=== PATIENT | female | born 1995 | race Caucasian/White ===

== ENCOUNTER → 2019-10-22 10:08 | Outpatient (CLI) | payer BC, SELFPAY ==
--- NOTE | ~2019-10-22 | US_ITS ---
EXAMINATION: US pelvic complete DATE: 10/22/2019 11:26 INDICATION: Heavy bleeding and pelvic cramping TECHNIQUE: Multiple transabdominal sonographic images of the pelvis were obtained. COMPARISON: None. FINDINGS: The uterus measures 7.1 x 4.5 x 3.3 cm. The endometrial complex measures 4 mm. The right ov christos measures 1.7 x 1.3 x 1.9 cm. The left ovary measures 2.7 x 2 x 2 cm. There is normal vascular roque w in the ovaries. There is no free fluid in the pelvis. IMPRESSION: 1. No sonographic correlate for the patient's symptoms. Reviewed, dictated and finalized at location A.
== END ==
PROVIDERS: Visit Provider Family Medicine
DX: N92.6 Irregular menstruation, unspecified (principal)
CPT/HCPCS: 76856

== ENCOUNTER 2020-11-04 16:39 | Observation (INO) | payer OTHER, SELFPAY ==
[2020-11-04 17:09] VITALS: BMI 32.1
[2020-11-04 17:15] VITALS: BP 105/62; PULSE 100
--- NOTE | 2020-11-04 17:15 | OBADM ---
This patient, Nancy Kinney, admitted to the OB room OB Post 116 for observation. Patient/family oriented to hospital policies and general routines including ID bracelet, bed and alarms, visiting hours, pain management, procedures, bathroom and other care routines, personal items, smoking policy, room service/diet, and visiting hours. Patient/Family are encouraged to report perceived risks to care and to ask questions if they do not understand what they are told or what they should do.
[2020-11-04 17:18] LABS: Add Urine Microscopic? YES; Amorphous Sediment Urine Few; Appearance Urine Cloudy (Clear); Bacteria Urine Trace /hpf; Bilirubin Urine Negative (Negative); Blood Urine Negative (Negative); Color Urine Yellow (Yellow); Glucose Urine UA Negative (Negative); Ketones Urine Trace mg/dL (Negative); Leukocyte Esterase Ur 1+ LEU/UL (NEGATIVE); Nitrate Urine Negative (Negative); Protein Urine Negative (Negative); RBC Urine 0-2 /hpf (0-2); Specific Grav Ur 1.009 (1.001-1.035); Squamous Epithelial Cell Urine Many /hpf (Few); Urobilinogen Urine Negative mg/dL (<2.0)
[2020-11-04 17:30] VITALS: BP 109/69; PULSE 95
--- NOTE | 2020-11-04 18:01 | PC.NURSE ---
1800- SPoke with Dr. Ly, orders for flexeril, and discharge to home.
[2020-11-04] MEDS: CYCLOBENZAPRINE HCL 10 MG TABLET PO (18:20)
--- NOTE | 2020-11-09 10:35 | P.PNOB_ITS ---
OB - Triage/Final Diagnosis Visit Information Reason for evaluation: threatened labor Comments/Additional reasons for admission: I have assessed the risk for this patient, Nancy Kinney, and determined that she would benefit from observation care. Evaluation Laboratory results: Laboratory Tests 11/04/20 17:04 Urine Color Yellow Urine Appearance Cloudy H Urine pH 8.0 Ur Specific [place] 1.009 Urine Protein Negative Urine Glucose (UA) Negative Urine Ketones Trace Ur Blood (Man) Negative Urine Nitrate Negative Urine Bilirubin Negative Urine Urobilinogen Negative Ur Leukocyte Esterase 1+ H Urine RBC 0-2 Urine WBC 4-6 H Ur Squamous Epith Cells Many H Amorphous Sediment Few H Urine Bacteria Trace Hyaline Casts 3-4 H
== END 2020-11-04 18:23 | disposition home or self-care (01) ==
PROVIDERS: Admitting Provider Obstetrics & Gynecology; Visit Provider Obstetrics & Gynecology
DX: O47.9 False labor, unspecified (principal); Z3A.00 Weeks of gestation of pregnancy not specified
CPT/HCPCS: 81001; 87086; A9270; G0378; G0379

== ENCOUNTER 2020-12-11 13:09 | Outpatient (RCR) | payer OTHER, SELFPAY ==
[2020-12-08 12:22] VITALS: BP 119/79; PULSE 82
--- NOTE | ~2020-12-11 | US_ITS ---
EXAMINATION: US OB follow up DATE: 12/11/2020 14:21 INDICATION: Assess growth and estimated weight at full-term of . TECHNIQUE: Real-time ultrasound of the pelvis was performed. The interpreting radiologist was not pre sent for the study. COMPARISON: None. FINDINGS: There is a single living fetus in vertex presentation. The placenta is posterior. heart rate i s 135 beats per minute (bpm). The amniotic fluid index is 11.0 cm, which is normal (5th%-95%: 7.1-31 .4 cm at 40 weeks estimated gestational age). The following biometric data were obtained: BPD: 10.0 cm -> 40 weeks 6 days Head circumference: 35.8 cm -> 40 weeks 2 days Abdominal circumference: 33.9 cm -> 37 weeks 5 days Femur length: 7.2 cm -> 36 weeks 4 days These measurements are concordant. Head circumference to abdominal circumference ratio: 1.03 (normal range 0.87-1.06). Estimated weight: 3414 g (+/-) 512 g or 7 lbs. 8 oz. (+/-) 1 lbs. 2 oz. IMPRESSION: 1. Single living fetus in vertex presentation with heart rate of 135 bpm. 2. Normal amniotic fluid index of 11.0 cm. 3. Estimated weight is 26th percentile by Hadlock criteria when 12/07/2020 is used as the estim ated date of delivery (NATA). Please correlate with clinical information or earlier ultrasounds for mo st accurate NATA. Reviewed, dictated and finalized at location A. IMPRESSION: 1. Single living fetus in vertex presentation with heart rate of 135 bpm. 2. Normal amniotic fluid index of 11.0 cm. 3. Estimated weight is 26th percentile by Hadlock criteria when 1 is used as the estimated date of delivery (NATA). Please correlate with clinic al information or earlier ultrasounds for most accurate NATA.
--- NOTE | ~2020-12-11 | US_ITS ---
EXAMINATION: US OB BPP wo non-stress DATE: 12/08/2020 13:07 CDT INDICATION: Decreased movement TECHNIQUE: Real-time transabdominal obstetric ultrasound. FINDINGS: No prior studies for comparison. There is a single living fetus in vertex presentation. The placenta is posterior fundal without plac enta previa. cardiac activity and movement is noted with a heart rate of 138 beats per minute. Biophysical profile: breathin of 2 movement: 2 of 2 tone: 2 of 2 Amniotic flud pocket: 2 of 2 Total score: 8 of 8 IMPRESSION: 1. Single living intrauterine in vertex presentation. 2: Total biophysical profile score of 8/8. Reviewed, dictated and finalized at location B.
[2020-12-11 14:20] VITALS: BP 114/82; PULSE 100
== END 2021-01-05 09:35 | disposition home or self-care (01) ==
LOC: ANHOBOP 13:09
PROVIDERS: Visit Provider Obstetrics & Gynecology
DX: O36.8130 Decreased fetal movements, third trimester, not applicable or unspecified (principal); Z3A.40 40 weeks gestation of pregnancy
CPT/HCPCS: 59025; 76816; 76819

== ENCOUNTER 2020-12-16 17:01 | Inpatient (IN) | payer OTHER, SELFPAY ==
[2020-12-16] VITALS (11 sets, daily range): BP systolic 97–138; BP diastolic 54–95; PULSE 78–111; BMI 32.7
--- NOTE | 2020-12-16 18:03 | LDADM ---
This patient, Nancy Kinney, was admitted to Labor/Delivery/Recovery 107 on 12/16/20 at 17:01. Plans for labor, pain management and were discussed with patient. Patient/family oriented to hospital policies and general routines including ID bracelet, bed and alarms, visiting hours, pain management, procedures, bathroom and other care routines, personal items, smoking policy, room service/diet and guest tray routines, infant security routines, and visiting hours. Patient/Family are encouraged to report perceived risks to care and to ask questions if they do not understand what they are told or what they should do. See OBIX for further documentation.
[2020-12-16 18:10] LABS: Basophils Percent Auto 0.1 % (0.2-1.2); Hematocrit 29.5 % (37.0-47.0); Hemoglobin 9.3 g/dL (12.0-15.0); Immature Granulocyte Absolute 0.12 K/mm3 (0.00-0.031); Immature Granulocyte Percent A 1.1 % (0-0.5); Lymphocytes Absolute Auto 2.36 K/mm3 (0.9-3.2); Lymphocytes Percent Auto 20.7 % (18.3-44.2); Mean Corpuscular HGB Conc 31.5 g/dl (32-36); Mean Corpuscular Hemoglobin 25.3 pg (26-34); Mean Corpuscular Volume 80.4 fl (80-100); Mean Platelet Volume 9.5 fl (7.4-10.4); Monocytes Absolute Auto 0.7 K/mm3 (0.1-0.6); Monocytes Percent Auto 6.4 % (2.6-8.5); Neutrophils Absolute Auto 8.2 K/mm3 (1.3-6.7); Neutrophils Percent Auto 71.7 % (45.5-73.1); Platelet Count Result 232 k/mm3 (150-375); Red Blood Count 3.67 M/mm3 (4.2-5.4); Red Cell Distribution Width 15.1 % (11.5-14.5); White Blood Count 11.4 K/mm3 (4.5-10.0)
[2020-12-16] MEDS: DINOPROSTONE 10 MG VAG INSERT VAGINAL (18:39)
[2020-12-16] MEDS: MELATONIN 5 MG TABLET 20 MG PO (21:09)
[2020-12-17] VITALS (174 sets, daily range): BP systolic 83–146; BP diastolic 53–104; PULSE 53–184; RESP 18–20; TEMP 35.8–37.1; O2SAT 86–100
--- NOTE | 2020-12-17 00:59 | P.PNAN_ITS ---
Anes - Eval Pre Procedure Procedure: labor epidural Date/Time: 12/17/20 00:59 Surgeon: saskia Preop Diagnosis: pain during labor Pre Op Diagnosis: IOL Patient Data Age: 25 Gender: F Height: 1.68 m Weight: 92 kg Last Vital Signs Pulse 85 12/17/20 00:23 BP 112/66 12/17/20 00:23 Allergies Allergy/AdvReac Type Severity Reaction Status Date / Time codeine Allergy Hives Verified 11/04/20 18:15 tioconazole Allergy Redness of Verified 12/16/20 17:56 [From Monistat 1 Skin (tioconazole)] paper tape Allergy Rash Uncoded 11/04/20 18:17 Home Medications Medication Instructions Recorded Confirmed Type diphenhydramine HCl [Unisom 50 mg PO HS 12/01/20 12/16/20 History SleepGels] magnesium 15 mg PO DAILY 12/01/20 12/16/20 History melatonin 10 mg PO HS PRN 12/01/20 12/16/20 History amoxicillin 500 mg PO TID 12/16/20 12/16/20 History Laboratory Tests 12/16/20 12/16/20 12/16/20 18:00 18:00 18:00 WBC 11.4 K/mm3 H K/mm3 (4.5-10.0) RBC 3.67 M/mm3 L M/mm3 (4.2-5.4) Hgb 9.3 g/dL L g/dL (12.0-15.0) Hct 29.5 % L % (37.0-47.0) MCV 80.4 fl fl (80-100) MCH 25.3 pg L pg (26-34) MCHC 31.5 g/dl L g/dl (32-36) RDW 15.1 % H % (11.5-14.5) Plt Count 232 k/mm3 k/mm3 (150-375) MPV 9.5 fl fl (7.4-10.4) Immature Gran % (Auto) 1.1 % H % (0-0.5) Neut % (Auto) 71.7 % % (45.5-73.1) Lymph % (Auto) 20.7 % % (18.3-44.2) [place] % (Auto) 6.4 % % (2.6-8.5) Eos % (Auto) 0.0 % % (0-4.4) Baso % (Auto) 0.1 % L % (0.2-1.2) Lymph # (Auto) 2.36 K/mm3 K/mm3 (0.9-3.2) [place] # (Auto) 0.7 K/mm3 H K/mm3 (0.1-0.6) Eos # (Auto) 0.0 K/mm3 K/mm3 (0-0.3) Baso # (Auto) 0.0 K/mm3 K/mm3 (0.0-0.1) Abs Immat Gran (auto) 0.12 K/mm3 H K/mm3 (0.00-0.031) Absolute Neuts (auto) 8.2 K/mm3 H K/mm3 (1.3-6.7) Absolute Nucleated RBC 0.0 K/mm3 K/mm3 (0.0-0.012) Nucleated RBC % 0.0 % % (0.0-0.2) RPR Pending Blood Type A Positive Antibody Screen Negative Patient hx anesthesia problems: none Family hx anesthesia problems: none Results Review: All pre-operative results and documents have been reviewed as part of the pre-operative evaluation. COUNTS INCLUDE 234 BEDS AT THE [facility] Family History Family History (Updated 12/01/20 @ 14:21 by Bessie Awan RN) Mother Diabetes mellitus Depression Asthma COPD (chronic obstructive pulmonary disease) Breast cancer Social History Social History Smoking status: Never smoker Substance use: never Spiritual care concerns: No Exam Day of Procedure 12/17/20 00:59
[2020-12-17] MEDS: fentaNYL CITRATE INJ (*CRX) 100 MCG/2 ML VIAL 50 MCG IV PUSH ×2 (06:26→06:46)
[2020-12-17] MEDS: LACTATED RINGERS 1,000 ML 125 ML IV CONT ×4 (06:47→23:42)
[2020-12-17] MEDS: OXYTOCIN 30 UNITS/NS 500 ML 30 UNITS/500 ML BAG IV CONT (06:47)
[2020-12-17 08:30] LABS: Rapid Plasma Reagin Non-Reactive (NonReactive)
[2020-12-17] MEDS: LORATADINE 10 MG TABLET PO (11:09)
[2020-12-17] MEDS: ONDANSETRON INJ 4 MG/2 ML VIAL IV PUSH ×2 (11:58→20:03)
[2020-12-18] VITALS (68 sets, daily range): BP systolic 99–136; BP diastolic 62–113; PULSE 69–159; RESP 16–20; TEMP 36.1–37.1; O2SAT 91–100
[2020-12-18] MEDS: LACTATED RINGERS 1,000 ML 125 ML IV CONT (04:08)
[2020-12-18] MEDS: METHYLERGONOVINE MALEATE 0.2 MG/ML VIAL IM ×2 (05:01→05:09)
[2020-12-18] MEDS: LIDOCAINE HCL 1% PF 30 ML VIAL (05:01)
[2020-12-18] MEDS: OXYTOCIN 30 UNITS/NS 500 ML 30 UNITS/500 ML BAG IV CONT (05:03)
--- NOTE | 2020-12-18 05:19 | PM.OBPRVD ---
OB - Delivery Note Procedure Intrapartal events: Prolonged Labor > 20 hours and Prolonged 2nd Stage > 2.5 hours Route of delivery: Episiotomy description: None Laceration Description: Vaginal - 2nd Degree Delivery repair: chromic Specimen: Yes Quantitative Blood Loss (ml): 750 Anesthesia type: Epidural Disposition: floor Narrative: Patient prepped in usual manner for this procedure. Maternal expulsive efforts delivered vertex and rest of baby followed without difficulty. Cord was clamped and cut and the placenta delivered spontaneously. Cervix vagina vulva were inspected with second-degree laceration of the vagina noted. Lidocaine was injected and this was closed using 2 0 chromic in a running interlocking manner the vaginal tissue deep tissue and subcuticular layer with good approximation hemostasis noted. There is moderate amount of bleeding which was rendered hemostatic with continue Pitocin Methergine and Cytotec given as well. The re-evaluation of the vagina and cervix revealed other than uterine atony no other anatomic abnormalities that would account for any of the abnormal bleeding. Baby Weeks of gestation at delivery: 41 gender: Male Weight (pounds): 7 Weight (ounces): 15 score one minute: 7 score five minutes: 8
[2020-12-18] MEDS: miSOPROStol 200 MCG TABLET 1000 MCG (05:20)
--- NOTE | 2020-12-18 05:21 | WPDHPUPDATE1 ---
History and Physical Update Update Date/Time: 12/18/20 05:21 History and Physical has been reviewed, including an updated exam of the patient. There are NO changes in the patient's condition. Risks, benefits, and alternatives have been discussed and questions answered. Patient agrees to proceed with procedure.
--- NOTE | 2020-12-18 05:22 | WPDOBADMIT ---
Obstetrics - Admit Note Admission Note: record reviewed. No pertinent additions to the history and/or any subsequent changes in the physical findings that are not consistent with the expected course of the were found. Additions to the history and/or subsequent changes in the physical findings follow. None.
[2020-12-18] MEDS: OXYTOCIN 30 UNITS/NS 500 ML 30 UNITS/500 ML BAG 125 UNITS IV CONT (05:26)
[2020-12-18] MEDS: HYDROcodone/acetaminophen (*CRX) 5-325 MG TABLET 1 TAB PO (06:21)
[2020-12-18] MEDS: WITCH HAZEL 40 PADS 1 PAD TOPICAL ×2 (06:58→17:01)
[2020-12-18] MEDS: BENZOCAINE 20% AER SPR (*SP) 56 GM CAN 1 SPRAY TOPICAL ×2 (06:58→17:01)
--- NOTE | 2020-12-18 07:42 | OBPPTRN ---
Patient transferred to post room # 291 via wheelchair. Support person present. Oriented to unit, room, information board, rooming in, admission packet and security measures. Patient verbalizes understanding.
[2020-12-18] MEDS: IBUPROFEN 600 MG TABLET PO ×3 (07:54→20:25)
--- NOTE | 2020-12-18 12:30 | PC.NURSE ---
Consult with pt., mother wishes to pump due to infant transfer. Breast pump provided due to mother's wishes. Instructions given on breast pump care and usage, pumping schedule, nipple care, and collection and storage of breast milk. Encouraged breast massage and manual expression to stimulate supply. Assessed patient for correct flange size, placement and draw. Patient verbalizes and demonstrates understanding of instructions. Discussed colostrum vs milk supply and mother may not see more than a few drops the first few days, milk should transition in by day 3 and she may see more volume pumped per session.
[2020-12-18] MEDS: LANOLIN (LANSINOH) 7.5 GM CREAM 1 APPLIC TOPICAL (17:01)
[2020-12-18] MEDS: POLYSACCHARIDE IRON COMPLEX 150 MG CAPSULE PO (17:02)
[2020-12-18] MEDS: DOCUSATE SODIUM 100 MG CAPSULE PO (17:05)
[2020-12-18] MEDS: MELATONIN 5 MG TABLET 10 MG PO (22:23)
[2020-12-19] MEDS: IBUPROFEN 600 MG TABLET PO ×2 (02:12→08:18)
[2020-12-19 04:45] VITALS: BP 97/66; PULSE 92; RESP 18; TEMP 36.6; O2SAT 98
--- NOTE | 2020-12-19 07:15 | PM.OBDSVD ---
DS: Admitting Diagnosis Discharge Date 12/19/2020 Admitting Diagnosis OB - DS: Summary OB Procedures : None OB Procedures Intrapartum: Spontaneous Vag Delivery OB Procedures: : None Time Spent with Patient Time attestation: Total time spent providing and/or coordinating discharge services: DS: Data Data Completed and Pending Pending studies at discharge: Pending at discharge 12/18/20 05:51 Surgical [PTH] Routine Labs on day of discharge: Labs from last 24 hours 12/19/20 04:17 Hgb Pending Hct Pending Discharge Plan Discharge Discharging Clinician: Aquilino Ly Patient Disposition: Home, Self-Care Activity: as tolerated Diet: as tolerated Patient Instructions: Antibiotic Form Stand Alone Forms: General Discharge Information Follow-up/Referrals: Aquilino Ly MD [Physician] - 3 Weeks Discharge Medications: New ibuprofen 600 mg Tablet 600 mg PO Q6H PRN (Reason: Cramping) Qty: 30 RF: 0 Continued magnesium 500 mg Tablet 15 mg PO DAILY RF: 0 diphenhydramine HCl [Unisom SleepGels] 50 mg Capsule 50 mg PO HS RF: 0 melatonin 10 mg Capsule 10 mg PO HS PRN (Reason: Insomnia) RF: 0 amoxicillin 500 mg capsule 500 mg PO TID RF: 0 Date of admission: 12/16/20 17:01 Primary Care Provider: PHYSICIAN,CHARGE ACCOUNT IDENTIFICATION CLERK Admitting Provider: Aquilino Ly Attending physician on admission: Aquilino Ly Condition: Stable
[2020-12-19] MEDS: DOCUSATE SODIUM 100 MG CAPSULE PO (08:18)
[2020-12-19] MEDS: POLYSACCHARIDE IRON COMPLEX 150 MG CAPSULE PO (08:18)
[2020-12-19 08:20] VITALS: BP 100/66; PULSE 96; RESP 20; TEMP 36.6; O2SAT 100
[2020-12-19] MEDS: BENZOCAINE 20% AER SPR (*SP) 56 GM CAN 1 SPRAY TOPICAL (08:25)
[2020-12-19] MEDS: WITCH HAZEL 40 PADS 1 PAD TOPICAL (08:25)
[2020-12-19 08:35] LABS: Hemoglobin 5.1 g/dL (12.0-15.0)
[2020-12-19 08:36] LABS: Hematocrit 16.6 % (37.0-47.0)
--- NOTE | 2020-12-19 12:09 | PC.NURSE ---
Patient declined follow-up visit.
== END 2020-12-19 12:00 | disposition home or self-care (01) | DRG 560 ==
LOC: ANHLDR 17:04 → ANHOB2 12-18 07:47
PROVIDERS: Admitting Provider Obstetrics & Gynecology; Visit Provider Obstetrics & Gynecology
DX: O42.92 Full-term premature rupture of membranes, unspecified as to length of time between rupture and onset of labor (principal); O70.1 Second degree perineal laceration during delivery; O76 Abnormality in fetal heart rate and rhythm complicating labor and delivery; Z3A.41 41 weeks gestation of pregnancy; Z37.0 Single live birth
CPT/HCPCS: 36415; 85014; 85018; 85025; 86592; 86850; 86900; 86901; 88307; A9270; J2210; J2405; J2590; J3010; J7120